=== PATIENT | female | born 1950 | race African-American/Black ===

== ENCOUNTER 2018-05-25 21:38 | Emergency (ER) | payer OTHER ==
[~2018-05-25] VITALS: Ht 162.6 cm; Wt 69.4 kg
[2018-05-25 22:54] LABS: HEMATOCRIT 33.6 % (37.0-47.0); MCH 32.1 pg (26.0-34.0); MCHC 32.8 g/dL (28.0-37.0); MCV 97.8 fL (80.0-100.0); PLATELET COUNT 190 thou/uL (150-400); RBC 3.43 mil/uL (4.20-5.00); RDW 14.5 % (10.5-14.5); WBC 5.5 thou/uL (4.0-11.0)
[2018-05-25 23:04] LABS: CALCIUM 9.1 mg/dL (8.5-10.1); CREATININE 1.9 mg/dL (0.6-1.0); POTASSIUM 4.6 mmol/L (3.5-5.1)
[2018-05-25 23:41] LABS: ABSOLUTE NEUTROPHILS 3.3 thou/uL (1.4-8.2)
[2018-05-26 00:06] LABS: URINE BILIRUBIN NEGATIVE (Negative); URINE BLOOD NEGATIVE (Negative); URINE CLARITY CLEAR; URINE COLOR YELLOW; URINE GLUCOSE-RANDOM* NEGATIVE (Negative); URINE KETONES NEGATIVE (Negative); URINE LEUKOCYTES-REFLEX NEGATIVE (Negative); URINE NITRITE-REFLEX NEGATIVE (Negative); URINE PROTEIN (DIPSTICK) TRACE (Negative); URINE SPECIFIC GRAVITY 1.015 (1.005-1.035); URINE UROBILINOGEN 0.2 E.U./dl (0.2-1.0)
[2018-05-26] MEDS ORDERED: TAMIFLU75 MG PO (01:25)
[2018-05-26 03:26] VITALS: BP 156/73
== END 2018-05-26 03:20 | disposition home or self-care (01) ==
LOC: ER 21:38
PROVIDERS: Emergency Medicine
DX: J10.1 Influenza due to other identified influenza virus with other respiratory manifestations (principal); F17.210 Nicotine dependence, cigarettes, uncomplicated; I10 Essential (primary) hypertension